=== PATIENT | female | born 1965 | race Asian ===

== ENCOUNTER 2021-11-01 12:41 | Emergency (ER) | payer OTHER ==
[~2021-11-01] VITALS: Ht 157.5 cm; Wt 59.0 kg
[2021-11-01 12:59] VITALS: BP 150/91
== END 2021-11-01 15:15 | disposition home or self-care (01) ==
LOC: ER 12:41
DX: H60.91 Unspecified otitis externa, right ear (principal)
CPT/HCPCS: 99281